=== PATIENT | female | born 1975 | race Caucasian/White ===

== ENCOUNTER 2017-04-04 16:06 | Emergency (ER) | payer MEDICAID ==
--- NOTE | 2017-04-04 16:39 | EDPHY ---
H & P Stated Complaint: abnl vaginal bleeding/hasn't bled since D&C in 2013 Time Seen by Provider: 04/04/17 16:19 HPI/ROS: Chief Complaint: Vaginal bleeding, pelvic pain HPI: 41-year-old who has not had a menstrual. In 13 year since her D and C went to the toilet today and wiped and noticed a small amount of blood there. She has been having some mild lower abdominal pain. No fevers or chills. No urinary urgency or frequency. No nausea or vomiting. She has had a tubal ligation in the past. States he is sexually active with a single partner. No history of sexually transmitted diseases in the past. ROS: 10 point Review of Systems is negative except as noted in the HPI. PMH: Asthma, bipolar disorder Social History: No smoking, no alcohol, no recreational drug use Family History: non-contributory Physical Exam: Gen: Awake, Alert, No Distress HEENT: Nose: no rhinorrhea Eyes: PERRLA, EOMI Mouth: Moist mucosa Neck: Supple, no JVD Chest: nontender, lungs clear to auscultation Heart: S1, S2 normal, no murmur Abd: Soft, non-tender, no guarding BUSINESS SOLUTION ANALYST: Speculum exam is normal. There is no vaginal blood. There is no blood from the cervical os. The os is closed. There are scant white vaginal secretions. Back: no CVA tenderness, no midline tenderness Ext: no edema, non-tender Skin: no rash Neuro: CN II-XII intact, Sensation grossly intact, Strength 5/5 in bilateral upper and lower extremities - Personal History LMP (Females 10-55): Now Current Tetanus/Diphtheria Vaccine: Yes - Medical/Surgical History Hx Asthma: Yes Hx Chronic Respiratory Disease: No Hx Diabetes: No Hx Cardiac Disease: No Hx Renal Disease: No Hx Cirrhosis: No Hx Alcoholism: No Hx HIV/AIDS: No Hx Splenectomy or Spleen Trauma: No Other PMH: denies - Social History Smoking Status: Never smoked Constitutional: Initial Vital Signs Temperature (C) 36.8 C 04/04/17 16:11 Heart Rate 95 04/04/17 16:11 Respiratory Rate 17 04/04/17 16:11 Blood Pressure 140/98 H 04/04/17 16:11 O2 Sat (%) 97 04/04/17 16:11 O2 Delivery Mode Room Air Allergies/Adverse Reactions: No Known Allergies Allergy (Unverified 04/04/17 16:11) Home Medications: Medication Instructions Recorded NK [No Known Home Meds] 04/04/17 Medical Decision Making ED Course/Re-evaluation: Urinalysis is negative. She is not . There is no obvious bleeding on speculum exam. Patient will be discharged with follow up with her primary care physician and possibly OBGYN if she continues to have any further complaints. - Data Points Laboratory Results: 04/04/17 04/04/17 Unknown Unknown Urine Color YELLOW Urine Appearance CLEAR Urine pH 6.0 (5.0-7.5) Ur Specific [place] 1.011 (1.002-1.030) Urine Protein NEGATIVE (NEGATIVE) Urine Ketones NEGATIVE (NEGATIVE) Urine Blood NEGATIVE (NEGATIVE) Urine Nitrate NEGATIVE (NEGATIVE) Urine Bilirubin NEGATIVE (NEGATIVE) Urine Urobilinogen NEGATIVE EU EU (0.2-1.0) Ur Leukocyte Esterase NEGATIVE (NEGATIVE) Urine Glucose NEGATIVE (NEGATIVE) Urine Test NEGATIVE Departure - Departure Disposition: Home, Routine, Self-Care Clinical Impression: Vaginal bleeding Condition: Good Instructions: Dysfunctional Uterine Bleeding (ED) Additional Instructions: Follow up with primary care physician in 3-4 days if he had further bleeding. Return emergency room for any uncontrolled bleeding, fevers, chills, worsening pain, or any other concerns. Referrals: Amador Harvey MD [place] [place] - As per Instructions
[2017-04-04 17:56] LABS: COLOR YELLOW; LEUKOCYTE ESTERASE,URINE NEGATIVE (NEGATIVE); NITRITE,URINE NEGATIVE (NEGATIVE)
[2017-04-04 18:05] VITALS: BP 136/90; PULSE 92; RESP 16; O2SAT 98
[2017-04-04 18:07] VITALS: TEMP 97.9
== END 2017-04-04 18:14 | disposition home or self-care (01) ==
DX: N93.9 Abnormal uterine and vaginal bleeding, unspecified (principal); J45.909 Unspecified asthma, uncomplicated